=== PATIENT | male | born 1965 | race Caucasian/White ===

== ENCOUNTER 2021-09-28 17:34 | Emergency (ER) | payer OTHER ==
[2021-09-28] MEDS ORDERED: Levofloxacin500mg IV 500 MG/100 ML BAG IV ONE (17:51)
[2021-09-28] MEDS ORDERED: HYDROMORPHONE HCL 1 MG/ML INJ ONE ×2 (17:51→18:56)
[2021-09-28] MEDS ORDERED: CLINDAMYCIN 900MG/D5W 900 MG/50 ML IVPB IV ONE (17:51)
[2021-09-28] MEDS ORDERED: ONDANSETRON 4 MG/2 ML VIAL ONE (17:51)
[2021-09-28] MEDS ORDERED: TETANUS & DIPHTHERIA TOX,ADULT 0.5 ML VIAL ONE (17:52)
--- NOTE | 2021-09-28 17:53 | ER ---
Nurse's Notes [facility] Name: Rocael Souza Age: 56 yrs Sex: Male : 1965 Arrival Date: 09/28/2021 Time: 17:35 Bed 4 Private MD: Diagnosis: Fall (on) (from) unspecified stairs and steps-Roof;Contusion of right knee;Fracture of upper end of radius-open;Displaced fracture of olecranon process with intraarticular extension of left ulna, initial encounter for open fracture type I or II-open;Hypomagnesemia Presentation: 09/28 17:35 Chief complaint: EMS states: Pt. arrives as a Trauma alert due to falling off a roof 10 jt3 feet. Denies LOC. Pt. arrives with a deformed left elbow and right knee pain. Lacerations to left elbow. Bleeding controlled. Pt. has dry blood coming from his nose. Alert and oriented x4 on arrival. Airway patent. Care prior to arrival: None. Mechanism of Injury: Fall from roof approximately 10 feet. Trauma event details: Injury occurred: at home. 17:35 Acuity: NELY 2 jt3 17:35 Method Of Arrival: EMS: [facility] jt3 19:11 Coronavirus screen: Vaccine status: Patient reports receiving the 2nd dose of the covid jt3 vaccine. 19:11 Ebola Screen: Patient negative for fever greater than or equal to 101.5 degrees jt3 Fahrenheit, and additional compatible Ebola Virus Disease symptoms Patient denies exposure to infectious person. Patient denies travel to an Ebola-affected area in the 21 days before illness onset. Initial Sepsis Screen: Does the patient meet any 2 criteria? No. Patient's initial sepsis screen is negative. Does the patient have a suspected source of infection? No. Patient's initial sepsis screen is negative. Risk Assessment: Do you want to hurt yourself or someone else? Patient reports no desire to harm self or others. Onset of symptoms was September 28, 2021. Historical: - Allergies: 17:47 PENICILLINS; iw 17:47 Codeine; iw - Immunization history: Last tetanus immunization: unknown. - Family history:: not pertinent. - Social history:: Smoking status: unknown. Screenin:35 Abuse screen: Denies threats or abuse. Denies injuries from another. Tuberculosis jt3 screening: No symptoms or risk factors identified. 19:12 Nutritional screening: No deficits noted. Fall Risk None identified. jt3 Primary Survey: 17:35 NO uncontrolled hemorrhage observed. A: The patient is alert. Airway: patent. jt3 Breathing/Chest: Respiratory pattern: regular, Respiratory effort: spontaneous, unlabored, Breath sounds: clear, bilaterally. Chest inspection: symmetrical rise and fall of the chest. Circulation: Skin temperature: warm. Disability Alert. Exposure/Environment: All clothing and personal items were removed. There is no evidence of uncontrolled external bleeding. Obvious injury(ies) are noted at this time: Left elbow deformity. Blood in bilateral nares. Right knee pain. 19:11 Reassessment Breathing/Chest Respiratory pattern Regular. jt3 Secondary Survey: 17:35 HEENT: Head Other Dry blood in bilateral nares. Gastrointestinal: No deficits noted. jt3 : No deficits noted. Musculoskeletal:. Assessment: 17:35 General: Appears uncomfortable, Behavior is calm, cooperative, appropriate for age. jt3 Pain: Complains of pain in left arm, lateral aspect of right knee, medial aspect of right knee and right knee Pain does not radiate. Pain currently is 8 out of 10 on a pain scale. Neuro: Level of Consciousness is awake, alert, obeys commands, Oriented to person, place, time, situation, Pupils are PERRLA, Denies blurred vision dizziness, headache. EENT: Nares with bleeding noted. Cardiovascular: No deficits noted. Respiratory: No deficits noted. GI: No deficits noted. : No deficits noted. Musculoskeletal: Circulation, motion, and sensation intact. Capillary refill < 3 seconds, Bony deformity noted of left elbow Left Elbow Swelling absent. 18:41 Reassessment: Patient's left elbow continues to have spotting of blood due to the open jt3 fracture. Bleeding is controlled. Splint applied by installation and service technician. 18:52 General: Pt. given more warm blankets.. jt3 19:08 Reassessment: RN to RN report given to DALTON Waters at [facility]. jt3 Vital Signs: 17:35 BP 132 / 68 RA; Pulse 68; Resp 17; Temp 97.8; Pulse Ox 100% on R/A; Weight 99.79 kg; jt3 Height 6 ft. 0 in. (182.88 cm); 18:52 BP 140 / 91; Pulse 109; Resp 18; Temp 97.5; Pulse Ox 98% on R/A; jt3 19:07 BP 148 / 95; Pulse 116; Resp 17; Pulse Ox 97% on R/A; jt3 17:35 Body Mass Index 29.84 (99.79 kg, 182.88 cm) jt3 [place] Coma Score: 17:35 Eye Response: spontaneous(4). Verbal Response: oriented(5). Motor Response: obeys jt3 commands(6). Total: 15. Trauma Score (Adult): 17:35 Eye Response: spontaneous(1); Verbal Response: oriented(1); Motor Response: obeys jt3 commands(2); Systolic BP: > 89 mm Hg(4); Respiratory Rate: 10 to 29 per min(4); Maki Score: 15; Trauma Score: 12 ED Course: 17:35 Patient arrived in ED. am2 17:35 Domingo Lucas MD is Attending Physician. russ 17:35 Servando Dick RN is Primary Nurse. jt3 17:35 Patient has correct armband on for positive identification. Bed in low position. Call jt3 light in reach. Side rails up X2. Patient maintains SpO2 saturation greater than 95% on room air. teletypesetter monitor on. Pulse ox on. NIBP on. 17:35 Patient maintains SpO2 saturation greater than 95% on room air. jt3 17:38 Triage completed. jt3 17:54 XRAY Chest (1 view) In Process Unspecified. EDMS 17:54 Knee Right 3 View XRAY In Process Unspecified. EDMS 17:54 Elbow Left 3 View XRAY In Process Unspecified. EDMS 17:54 initiated a transfer with Sav Palmer from the [facility]. 17:59 administrative approval given by Sav Palmer Rn/ Pt has been accepted to [facility] ER/ Dr. Isai Urrutia has accepted the patient in transfer/ report to be called to the er [phone]. 18:09 Orthoglass splint: posterior long arm splint applied to the left arm. capillary refill dh3 <3 seconds, viewed by Dr. Lucas. 18:44 CT Traumagram (Head C Spine CAP wo con) In Process Unspecified. EDMS 19:10 No provider procedures requiring assistance completed. Inserted saline lock: 20 gauge jt3 antecubital area, using aseptic technique. 19:12 Splint/sling/ice applied as appropriate. Patient Pt. splinted to left arm by cofounder. jt3 19:12 Thermoregulation: warm blanket given to patient. 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 Lot #: [id number]. } Route: IM; Site: right deltoid; 19:14 Follow up: Response: No adverse reaction jt3 18:14 Drug: NS 0.9% 1000 ml Route: IV; Rate: 1 bolus; Site: right antecubital; iw 18:14 Drug: Clindamycin 900 mg Route: IVPB; Infused Over: 30 mins; Site: right antecubital; iw 19:15 Follow up: Response: No adverse reaction jt3 18:51 Drug: levofloxacin 500 mg Volume: 100 ml; Route: IVPB; Infused Over: 60 mins; Site: jt3 right antecubital; 19:14 Follow up: Response: No adverse reaction jt3 19:02 Drug: Dilaudid (HYDROmorphone) 1 mg Route: IVP; Site: right antecubital; jt3 19:26 Drug: Magnesium Sulfate 1 grams Route: IVPB; Infused Over: 1 hrs; Site: left bs2 antecubital; Intake: 17:35 PO: 0ml; IV: 0ml; Total: 0ml. jt3 Output: 17:35 Urine: 0ml; Total: 0ml. jt3 Outcome: 17:52 ER care complete, transfer ordered by MD. solano 19:10 Transferred to [facility]. jt3 19:10 Condition: stable 19:10 Discharge instructions given to EMS, Instructed on the need for transfer. 19:12 Patient's length of stay was not longer than 2 hours. jt3 19:57 Patient left the ED. bs2 Signatures: Dispatcher [employer] EDDomingo Jacome MD MD cha Williams, Irene, RN [place] [facility] Nuha García [facility] Tay Galarza [facility] Mimi Fan Bridget, RN RN bs2 Servando Dick RN RN jt3
--- NOTE | 2021-09-28 17:53 | EDPHYS ---
Physician Documentation [facility] Name: Rocael Souza Age: 56 yrs Sex: Male : 1965 Arrival Date: 09/28/2021 Time: 17:35 Bed 4 Private MD: ED Physician Domingo Lucas HPI: 09/28 17:39 This 56 yrs old Male presents to ER via EMS with complaints of Fall Injury russ OFF ROOF. 17:39 Details of fall: The patient fell from a height, off a roof, approximately 10 feet. russ Onset: The symptoms/episode began/occurred just prior to arrival. Associated injuries: The patient sustained injury to the head, neck injury, injury to the chest, left antecubital area and left elbow, decreased range of motion, ecchymosis, hematoma, laceration, obvious fracture, painful injury, swelling. Severity of symptoms: At their worst the symptoms were moderate, in the emergency department the symptoms are unchanged. The patient has not experienced similar symptoms in the past. Historical: - Allergies: 17:47 PENICILLINS; iw 17:47 Codeine; iw - Immunization history: Last tetanus immunization: unknown. - Family history:: not pertinent. - Social history:: Smoking status: unknown. ROS: 17:39 Constitutional: Negative for fever, chills, and weight loss, Eyes: Negative for injury, russ pain, redness, and discharge, ENT: Negative for injury, pain, and discharge, Neck: Negative for injury, pain, and swelling, Cardiovascular: Negative for chest pain, palpitations, and edema, Respiratory: Negative for shortness of breath, cough, wheezing, and pleuritic chest pain, Abdomen/GI: Negative for abdominal pain, nausea, vomiting, diarrhea, and constipation, Back: Negative for injury and pain, : Negative for injury, bleeding, discharge, and swelling, Neuro: Negative for headache, weakness, numbness, tingling, and seizure, Psych: Negative for depression, anxiety, suicide ideation, homicidal ideation, and hallucinations, Allergy/Immunology: Negative for hives, rash, and allergies, Endocrine: Negative for neck swelling, polydipsia, polyuria, polyphagia, and marked weight changes, Hematologic/Lymphatic: Negative for swollen nodes, abnormal bleeding, and unusual bruising. 17:39 MS/extremity: Positive for injury or acute deformity, decreased range of motion, laceration, pain, swelling, tenderness, of the left antecubital area and left elbow. Exam: 17:39 Head/Face: Normocephalic, atraumatic. russ 17:39 Eyes: Pupils equal round and reactive to light, extra-ocular motions intact. Lids and lashes normal. Conjunctiva and sclera are non-icteric and not injected. Cornea within normal limits. Periorbital areas with no swelling, redness, or edema. ENT: Nares patent. No nasal discharge, no septal abnormalities noted. Tympanic membranes are normal and external auditory canals are clear. Oropharynx with no redness, swelling, or masses, exudates, or evidence of obstruction, uvula midline. Mucous membranes moist. Neck: Trachea midline, no thyromegaly or masses palpated, and no cervical lymphadenopathy. Supple, full range of motion without nuchal rigidity, or vertebral point tenderness. No Meningismus. Chest/axilla: Normal chest wall appearance and motion. Nontender with no deformity. No lesions are appreciated. Respiratory: Lungs have equal breath sounds bilaterally, clear to auscultation and percussion. No rales, rhonchi or wheezes noted. No increased work of breathing, no retractions or nasal flaring. Abdomen/GI: Soft, non-tender, with normal bowel sounds. No distension or tympany. No guarding or rebound. No evidence of tenderness throughout. Back: No spinal tenderness. No costovertebral tenderness. Full range of motion. Male : Normal genitalia with no discharge or lesions. Skin: Warm, dry with normal turgor. Normal color with no rashes, no lesions, and no evidence of cellulitis. Psych: Awake, alert, with orientation to person, place and time. Behavior, mood, and affect are within normal limits. 17:39 Constitutional: The patient appears in obvious distress, moderately distressed. 17:39 Constitutional: The patient appears in obvious distress. 17:39 Musculoskeletal/extremity: ROM: limited active range of motion due to pain, limited passive range of motion due to pain, in the left antecubital area and left elbow, Circulation is intact in all extremities. Sensation intact. Compartment Syndrome exam of affected extremity: is normal. DVT Exam: negative Homans' sign noted on exam, no appreciated bluish discoloration, no erythema, no increased warmth, pain, swelling, tenderness. 17:39 Skin: Appearance: Color: pale. 17:39 Neuro: Orientation: is normal, appropriate for stated age, no acute changes, Mentation: is normal, appropriate for stated age, no acute changes, Memory: is normal, appropriate for stated age, no acute changes, Cranial nerves: grossly normal, is grossly normal based on the patient's age, no acute changes, Motor: is normal, is grossly normal based on the patient's age, moves all fours, Sensation: no obvious gross deficits, appropriate no acute changes, Gait: not tested. seizure activity, is not displayed by the patient. 18:00 ECG was reviewed by the Attending Physician. [facility] Vital Signs: 17:35 BP 132 / 68 RA; Pulse 68; Resp 17; Temp 97.8; Pulse Ox 100% on R/A; Weight 99.79 kg; jt3 Height 6 ft. 0 in. (182.88 cm); 18:52 BP 140 / 91; Pulse 109; Resp 18; Temp 97.5; Pulse Ox 98% on R/A; jt3 19:07 BP 148 / 95; Pulse 116; Resp 17; Pulse Ox 97% on R/A; jt3 17:35 Body Mass Index 29.84 (99.79 kg, 182.88 cm) jt3 Maki Coma Score: 17:35 Eye Response: spontaneous(4). Verbal Response: oriented(5). Motor Response: obeys jt3 commands(6). Total: 15. Trauma Score (Adult): 17:35 Eye Response: spontaneous(1); Verbal Response: oriented(1); Motor Response: obeys jt3 commands(2); Systolic BP: > 89 mm Hg(4); Respiratory Rate: 10 to 29 per min(4); [place] Score: 15; Trauma Score: 12 MDM: 17:35 Patient medically screened. [facility] 17:44 Differential diagnosis: closed head injury, contusion, fracture, laceration, multiple [facility] trauma, sprain, strain. Data reviewed: vital signs, nurses notes, EMS record, lab test result(s), EKG, radiologic studies, CT scan, plain films. Data interpreted: monitor car operator: rate is 80 beats/min, rhythm is regular, Pulse oximetry: on room air is 98 %. Counseling: I had a detailed discussion with the patient and/or guardian regarding: the historical points, exam findings, and any diagnostic results supporting the discharge/admit diagnosis, lab results, radiology results, the need to transfer to another facility, for higher level of care, [facility] does not immediately have the required specialist. 09/28 17:39 Order name: Basic Metabolic Panel; Complete Time: 19:11 [facility] 09/28 17:39 Order name: CBC with Diff; Complete Time: 18:13 09/28 17:39 Order name: LFT's; Complete Time: 19:11 russ 09/28 17:39 Order name: Magnesium; Complete Time: 19:11 [facility] 09/28 17:39 Order name: NT PRO-BNP; Complete Time: 19:11 [facility] 09/28 17:39 Order name: PT-INR; Complete Time: 18:13 [facility] 09/28 17:39 Order name: Troponin (emerg Dept Use Only); Complete Time: 19:11 [facility] 09/28 17:39 Order name: XRAY Chest (1 view); Complete Time: 18:13 [facility] 09/28 17:39 Order name: Type And Screen; Complete Time: 19:11 [facility] 09/28 17:39 Order name: Knee Right 3 View XRAY; Complete Time: 18:13 09/28 17:39 Order name: Elbow Left 3 View XRAY; Complete Time: 18:13 [facility] 09/28 18:17 Order name: CT Traumagram (Head C Spine CAP wo con); Complete Time: 19:11 [facility] 09/28 17:39 Order name: EKG; Complete Time: 17:40 09/28 17:39 Order name: Cardiac monitoring; Complete Time: 18:03 [facility] 09/28 17:39 Order name: EKG - Nurse/Tech; Complete Time: 18:03 09/28 17:39 Order name: IV Saline Lock; Complete Time: 18:03 [facility] 09/28 17:39 Order name: Labs collected and sent; Complete Time: 18:03 [facility] 09/28 17:39 Order name: O2 Per Protocol; Complete Time: 18:03 russ 09/28 17:39 Order name: O2 Sat Monitoring; Complete Time: 18:03 [facility] 09/28 17:39 Order name: Wound Care; Complete Time: 18:03 [facility] 09/28 17:39 Order name: Splint - Elbow - Posterior; Complete Time: 18:12 russ EC:00 Rate is 92 beats/min. Rhythm is regular. QRS [place] is Normal. RI interval is normal. QRS russ interval is normal. QT interval is normal. No Q waves. T waves are Normal. No ST changes noted. Clinical impression: NSR w/ Non-specific ST/T Changes and No evidence of ischemia. Interpreted by me. Reviewed by me. 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 Lot #: [id number]. } Route: IM; Site: right deltoid; 19:14 Follow up: Response: No adverse reaction jt3 18:14 Drug: NS 0.9% 1000 ml Route: IV; Rate: 1 bolus; Site: right antecubital; iw 18:14 Drug: Clindamycin 900 mg Route: IVPB; Infused Over: 30 mins; Site: right antecubital; iw 19:15 Follow up: Response: No adverse reaction jt3 18:51 Drug: levofloxacin 500 mg Volume: 100 ml; Route: IVPB; Infused Over: 60 mins; Site: jt3 right antecubital; 19:14 Follow up: Response: No adverse reaction jt3 19:02 Drug: Dilaudid (HYDROmorphone) 1 mg Route: IVP; Site: right antecubital; jt3 19:26 Drug: Magnesium Sulfate 1 grams Route: IVPB; Infused Over: 1 hrs; Site: left bs2 antecubital; Disposition Summary: 09/28/21 17:52 Transfer Ordered Transfer Location: [facility] russ Reason: Higher level of care russ Condition: Fair russ Problem: new russ Symptoms: have improved russ Accepting Physician: TO [facility](09/28/21 19:57) bs2 Diagnosis - Fall (on) (from) unspecified stairs and steps - Roof russ - Contusion of right knee russ - Fracture of upper end of radius - open russ - Displaced fracture of olecranon process with intraarticular extension of left ulna, russ initial encounter for open fracture type I or II - open - Hypomagnesemia russ Forms: - Medication Reconciliation Form russ - SBAR form russ Signatures: Dispatcher [employer] EDMS Domingo Lucas MD MD cha Williams, Irene, RN DALTON iw Victorina Harrison RN RN bs2 Servando Dick RN RN jt3 Corrections: (The following items were deleted from the chart) 17:46 17:40 Pelvis+RAD.RAD.BRZ ordered. EDMS EDMS 18:44 17:40 Head C Spine CAP W Con+CT.RAD.BRZ ordered. EDMS EDMS 19:12 17:52 TO [facility] 19:57 19:12 TO [facility] bs2
[2021-09-28 18:02] LABS: Absolute Lymphocytes (CBC) 3.1 K/uL (0.7-4.9); Basophils % 0.6 % (0-1.3); Hematocrit 39.4 % (39.6-49.0); Lymphocytes % 39.8 % (15.3-44.8); MPV 8.8 fL (7.6-11.3); RBC Red Blood Cell Count 4.45 M/uL (4.33-5.43)
[2021-09-28 18:08] LABS: Protime INR 0.99
--- NOTE | 2021-09-28 18:10 | RAD REPORT ---
EXAM DESCRIPTION: RAD - Chest Single View - 09/28/2021 5:54 pm CLINICAL HISTORY: DYSPNEA COMPARISON: No comparisons FINDINGS: Lines: None. Lungs: No evidence of edema or pneumonia. Pleural: No significant pleural effusions or pneumothorax. Cardiac: The heart size is within normal limits. Bones: No acute fractures. Other: IMPRESSION: No acute cardiopulmonary disease.
--- NOTE | 2021-09-28 18:11 | RAD REPORT ---
EXAM DESCRIPTION: RAD - Knee Right 3 View - 09/28/2021 5:54 pm CLINICAL HISTORY: PAIN COMPARISON: No comparisons FINDINGS: No acute fracture. No malalignment. Mild medial compartment narrowing. IMPRESSION: No acute osseous abnormality involving the right knee.
--- NOTE | 2021-09-28 18:12 | RAD REPORT ---
EXAM DESCRIPTION: RAD - Elbow Left 3 View - 09/28/2021 5:55 pm CLINICAL HISTORY: PAIN COMPARISON: No comparisons FINDINGS: Difficult to evaluate the elbow due to positioning. There are displaced fractures involvin g the proximal radius and proximal ulnar diaphysis. No dislocation is seen. There is both overriding and angulation. Soft tissue swelling. IMPRESSION: Displaced and angulated proximal radial and ulnar fractures. No dislocation.
[2021-09-28 18:18] LABS: Sodium Level 143 mmol/L (136-145)
[2021-09-28 18:34] LABS: ALT/SGPT 71 U/L (12-78); Albumin 3.7 g/dL (3.4-5.0); Alkaline Phosphatase 48 U/L (45-117); BUN Blood Urea Nitrogen 18 mg/dL (7-18); Bicarbonate 22 mmol/L (21-32); Bilirubin Direct 0.1 mg/dL (0-0.2); Bilirubin Total 0.7 mg/dL (0.2-1.0); Glucose Level 102 mg/dL (74-106); NT PRO-BNP 73 pg/mL (<125); Protein, Total 6.8 g/dL (6.4-8.2); Troponin (Emerg Dept Use Only) < 0.02 ng/mL (0.0-0.045)
[2021-09-28 18:40] LABS: AST/SGOT 45 U/L (15-37); Magnesium 1.7 mg/dL (1.8-2.4); Potassium 3.8 mmol/L (3.5-5.1)
--- NOTE | 2021-09-28 19:10 | RAD REPORT ---
EXAM DESCRIPTION: CT - Head C Spine Cap Wo Con - 09/28/2021 6:44 pm CLINICAL HISTORY: Trauma, head and neck injury. Chest, abdomen and pelvis pain. fall from roof;Pain COMPARISON: No comparisons TECHNIQUE: CT head without contrast. CT cervical spine without contrast with coronal and sagittal reformatted images. CT chest, abdomen and pelvis with coronal and sagittal reformatted images of the spine. All CT scans are performed using dose optimization technique as appropriate and may include automated exposure control or mA/KV adjustment according to patient size. FINDINGS: CT HEAD WITHOUT CONTRAST: No intracranial hemorrhage, hydrocephalus or extra-axial fluid collection. No acute large vascular te rritory infarct. The paranasal sinuses and mastoids are clear. The calvarium is intact. Age indeterminate nasal bone fractures. CT CERVICAL SPINE WITHOUT CONTRAST: No fracture or subluxation. The prevertebral soft tissues are normal in thickness. CT CHEST, ABDOMEN, PELVIS: Thorax: Chest Wall: No abnormal mass trace gas within the right upper chest wall. Lungs: No acute abnormality. Pleura: No effusions or pneumothorax. Abby/Mediastinum: No lymphadenopathy. Aorta/Pulmonary Arteries: Unremarkable Heart: Normal size. Coronary artery calcifications. Abdomen/Pelvis: Liver: No acute abnormality or suspicious lesions. Biliary: No biliary ductal dilatation. Stomach: No significant focal abnormality. Duodenum: No significant focal abnormality. Pancreas: No significant abnormality. Spleen: No significant abnormality. Adrenal: No suspicious lesions. Kidney/ureter: No hydronephrosis. No renal calculi. Too small to characterize and/or benign appearing renal lesions are noted. Retroperitoneum: No retroperitoneal adenopathy. Vascular: No aneurysm. Bowel: No significant focal abnormality. Peritoneum: No ascites or free air. Bladder: Grossly unremarkable. Reproductive: No adnexal masses. Bones: No acute fracture. The left proximal forearm fracture is at the edge field of view. Other: n/a IMPRESSION: Negative for acute traumatic findings.
[2021-09-28] MEDS ORDERED: Magnesium Sulfate 2gm IVPB 2 G/50 ML BAG IV ONE (19:25)
[2021-09-28 20:14] VITALS: TEMP 97.5
[2021-09-28 20:16] VITALS: BP 148/95; O2SAT 97
== END 2021-09-28 19:57 | disposition short-term general hospital (02) ==
LOC: ER 17:34
PROC: 2W39X1Z Immobilization of Left Upper Extremity using Splint (ICD-10-PCS; principal; 2021-09-28)
DX: S52.102B Unspecified fracture of upper end of left radius, initial encounter for open fracture type I or II (principal); S52.032B Displaced fracture of olecranon process with intraarticular extension of left ulna, initial encounter for open fracture type I or II; S80.01XA Contusion of right knee, initial encounter; W13.2XXA Fall from, out of or through roof, initial encounter; E83.42 Hypomagnesemia; Z23 Encounter for immunization; Z88.0 Allergy status to penicillin; Z88.5 Allergy status to narcotic agent
CPT/HCPCS: 93005; 85025; 80048; 36415; 86900; 83735; 86850; 85610; 82565; 86901; 80076; 84484; 83880; 70450; 71250; 72125; 71045; 73080; 73562; 90471; 90714; 99285; 29105; J3475; J1170 ×2; J2405